=== PATIENT | male | born 1970 | race Hispanic/Latino ===

== ENCOUNTER 2018-10-25 13:23 | Emergency (ER) | payer BC, MEDICAID ==
[2018-10-25 13:32] VITALS: RESP 18
[2018-10-25] MEDS ORDERED: Sodium Chloride 0.9% 1,000 ML IV STA (14:01)
--- NOTE | 2018-10-25 14:28 | ED PDOC ---
HPI: Abdomen Time Seen by Provider: 10/25/18 13:45 Chief Complaint (Nursing): Abdominal Pain Chief Complaint (Provider): Abdominal Pain History Per: Patient History/Exam Limitations: no limitations Onset/Duration Of Symptoms: Days (past week) Associated Symptoms: Nausea, Diarrhea, Constipation. denies: Vomiting, Loss Of Appetite Additional Complaint(s): Sid Lundberg is a 48 year old male with a past medical history of IBS, ADD, and anxiety, who presents to the emergency department complaining of bloating, nausea, intermittent episodes of constipation and diarrhea, associated with dizziness and bilateral blurry vision, onset past week. He reports that he gets these symptoms once every month and attributes them to his IBS, for which he takes Linzess and states he feels better after taking it. Patient further states that when he was at the pharmacy today, he took a Linzess and while already feeling weakness, it started to get worse and he felt as if he was going to pass out. He states he has never had these symptoms before. Patient further reports that for the past several months now, he has had a strong sense of smell. His psychiatrist told him it could be due to his Adderall and Wellbutrin, which he takes for ADD and anxiety respectively. Patient states today he has had x3 episodes of non-bloody watery diarrhea with good appetite but has not been drinking fluids. He denies vomiting, rectal bleeding, headache, melena, hematochezia, chest pain, shortness of breath, fever, chills, or head injury. PMD: Breonna Lal Past Medical History Reviewed: Historical Data, Nursing Documentation, Vital Signs Vital Signs: Last Vital Signs Temp 98.2 F 10/25/18 13:29 Pulse 64 10/25/18 13:29 Resp 18 10/25/18 13:29 BP 108/69 10/25/18 13:29 Pulse Ox 100 10/25/18 13:29 - Medical History PMH: Anxiety, Depression Other PMH: ADD - Surgical History Surgical History: No Surg Hx - Family History Family History: States: Unknown Family Hx - Home Medications Home Medications: Ambulatory Orders Medication Instructions Recorded Ondansetron ODT [Zofran ODT] 4 mg PO TID #10 odt 10/25/18 - Allergies Allergies/Adverse Reactions: Allergies Allergy/AdvReac Type Severity Reaction Status Date / Time No Known Allergies Allergy Unverified 10/25/18 13:29 Review of Systems ROS Statement: Except As Marked, All Systems Reviewed And Found Negative Constitutional: Negative for: Fever, Chills Eyes: Positive for: Vision Change (bilateral blurry vision) Cardiovascular: Negative for: Chest Pain Respiratory: Negative for: Shortness of Breath Gastrointestinal: Positive for: Nausea, Diarrhea, Constipation. Negative for: Vomiting, Melena, Hematochezia, Rectal Pain (rectal bleeding) Neurological: Positive for: Weakness, Dizziness. Negative for: Headache Physical Exam - Reviewed Nursing Documentation Reviewed: Yes Vital Signs Reviewed: Yes - Physical Exam Appears: Positive for: Non-toxic, No Acute Distress Head Exam: Positive for: ATRAUMATIC, NORMOCEPHALIC Skin: Positive for: Normal Color, Warm, Dry Eye Exam: Positive for: Normal appearance, EOMI, PERRL. Negative for: Nystagmus ENT: Positive for: TM Is/Are (non-erythematous, non-bulging b/l). Negative for: Sinus Pain/Drainage, Pharyngeal Erythema, Tonsillar Exudate, Tonsillar Swelling Neck: Positive for: Normal, Painless ROM, Supple Cardiovascular/Chest: Positive for: Regular Rate, Rhythm. Negative for: Murmur Respiratory: Positive for: Normal Breath Sounds. Negative for: Respiratory Distress Gastrointestinal/Abdominal: Positive for: Normal Exam, Soft. Negative for: Tenderness (no tenderness on deep palpation), Distended Back: Positive for: Normal Inspection. Negative for: L CVA Tenderness, R CVA Tenderness, Vertebral Tenderness Extremity: Positive for: Normal ROM. Negative for: Pedal Edema, Deformity Neurologic/Psych: Positive for: Alert, Oriented, Mood/Affect (cooperative and friendly), Gait (steady and unassisted). Negative for: Motor/Sensory Deficits - Laboratory Results Result Diagrams: 10/25/18 14:48 10/25/18 14:48 - ECG ECG: Positive for: Interpreted By Me ECG Rhythm: Positive for: Sinus Rhythm. Negative for: ST/T Changes Rate: 68 O2 Sat by Pulse Oximetry: 100 (RA) Pulse Ox Interpretation: Normal - Progress Re-evaluation Time: 15:42 (AOx3. Reports feeling much better. All symptoms re solved. Repeat neuro exam is non-focal. Abd soft and non-tender. Advised to f/u with PMD for further evaluation but is to return to ED immediately if symptoms worsen. ) Condition: Re-examined, Improved Medical Decision Making Medical Decision Making: Time: 1401 Impression: IBS, dizziness, dehydration Plan: --CT head without contrast --EKG --CMP --Lipase --Troponin I --CBC with differential --Urinalysis --Bentyl 20 mg PO --Pepcid 20 mg IVP --Sodium chloride 1,000 ml --Zofran inj 4 mg IVP --Saline lock Time: 1506 CT FINDINGS: HEMORRHAGE: No intracranial hemorrhage. BRAIN: No mass effect or edema. The robb-white matter differentiation appears intact. Please note that MRI with diffusion imaging is more sensitive in the detection of acute ischemic event. VENTRICLES: No hydrocephalus. CALVARIUM: Unremarkable. PARANASAL SINUSES: Unremarkable as visualized. No significant inflammatory changes. MASTOID AIR CELLS: Unremarkable as visualized. No inflammatory changes. OTHER FINDINGS: None. IMPRESSION: No acute intracranial pathology identified. Scribe Attestation: Documented by Eren Cochran, acting as a scribe for Elpidio Cary Provider Scribe Attestation: All medical record entries made by the Scribe were at my direction and personally dictated by me. I have reviewed the chart and agree that the record accurately reflects my personal performance of the history, physical exam, medical decision making, and the department course for this patient. I have also personally directed, reviewed, and agree with the discharge instructions and disposition. Disposition - Clinical Impression Clinical Impression: Pre-syncope, IBS (irritable bowel syndrome) - Patient ED Disposition Is Patient to be Admitted: No - Disposition Referrals: [facility] [Outside] [facility] [Outside] Sage Gandara MD [Staff Provider] - Manuel Montes MD [Medical Doctor] - Disposition: Routine/Home Disposition Time: 15:44 Condition: IMPROVED Additional Instructions: FOLLOW UP WITH YOUR DOCTOR FOR FURTHER EVALUATION RETURN TO ED IMMEDIATELY IF SYMPTOMS WORSEN SID LUNDBERG, thank you for letting us take care of you today. Your provider was Randy Smith MD and you were treated for NAUSEA. The emergency medical care you received today was directed at your acute symptoms. If you were prescribed any medication, please fill it and take as directed. It may take several days for your symptoms to resolve. Return to the Emergency Department if your symptoms worsen, do not improve, or if you have any other problems. Please contact your doctor or call one of the physicians/clinics you have been referred to that are listed on the Patient Visit Information form that is included in your discharge packet. Bring any paperwork you were given at discharge with you along with any medications you are taking to your follow up visit. Our treatment cannot replace ongoing medical care by a primary care provider outside of the emergency department. Thank you for allowing the [facility] team to be part of your care today. If you had an X-Ray or CT scan: A Radiologist will review the ED reading if any change in treatment is needed we will contact you. If you had a blood, urine, or wound culture: It will take several days for the results, if any change in treatment is needed we will contact you. If you had an STI test: It will take 48 hours for the results. Please call after 1 week if you have not heard back. Prescriptions: Ondansetron ODT [Zofran ODT] 4 mg PO TID #10 odt Instructions: Irritable Bowel Syndrome (DC) Forms: [employer] (Danish)
--- NOTE | 2018-10-25 15:09 | CT ---
Date of service: 10/25/2018 PROCEDURE: CT HEAD WITHOUT CONTRAST. HISTORY: dizziness, weakness COMPARISON: None available. TECHNIQUE: Axial computed tomography images were obtained through the head/brain without intravenous contrast. Radiation dose: Total exam DLP = 900.57 mGy-cm. This CT exam was performed using one or more of the following dose reduction techniques: Automated exposure control, adjustment of the mA and/or kV according to patient size, and/or use of iterative reconstruction technique. FINDINGS: HEMORRHAGE: No intracranial hemorrhage. BRAIN: No mass effect or edema. The robb-white matter differentiation appears intact. Please note that MRI with diffusion imaging is more sensitive in the detection of acute ischemic event. VENTRICLES: No hydrocephalus. CALVARIUM: Unremarkable. PARANASAL SINUSES: Unremarkable as visualized. No significant inflammatory changes. MASTOID AIR CELLS: Unremarkable as visualized. No inflammatory changes. OTHER FINDINGS: None. IMPRESSION: No acute intracranial pathology identified.
[2018-10-25 15:25] LABS: ALB/GLOB RATIO 1.2 (1.0-2.1); ALBUMIN 4.6 g/dL (3.5-5.0); ALT/SGPT 91 U/L (21-72); AST/SGOT 70 U/L (17-59); BLOOD UREA NITROGEN 20 mg/dl (9-20); CALCIUM 9.5 mg/dL (8.4-10.2); GFR NON-AFRICAN AMERICAN > 60; LIPASE 729 U/L (23-300)
[2018-10-25 15:26] LABS: BASO % 0.3 % (0.0-2.0); EOS # 0.1 K/uL (0.0-0.7); EOS % 1.3 % (0.0-4.0); HEMOGLOBIN 14.9 g/dL (12.0-18.0); LYMPH # 0.6 K/uL (1.0-4.3); LYMPH % 7.3 % (20.0-40.0); MEAN CELL VOLUME 86.1 fl (80.0-94.0); MEAN CORPUSCULAR HEMOGLOBIN 29.1 pg (27.0-31.0); MEAN CORPUSCULAR HGB CONC 33.8 g/dL (33.0-37.0); MEAN PLATELET VOLUME 7.7 fl (7.2-11.7); MONO # 0.7 K/uL (0.0-0.8); MONO % 8.1 % (0.0-10.0); NRBC % 0.1 % (0.0-0.0); PLATELET COUNT 236 K/uL (130-400); RBC 5.12 Mil/uL (4.40-5.90); RED CELL DISTRIBUTION WIDTH 13.4 % (11.5-14.5); WHITE BLOOD COUNT 8.5 K/uL (4.8-10.8)
[2018-10-25 15:28] LABS: SQUAMOUS EPITHIAL < 1 /hpf (0-5); URINE BACTERIA RARE (<OCC); URINE BILIRUBIN NEGATIVE (NEGATIVE); URINE BLOOD SMALL (NEGATIVE); URINE CLARITY SLIGHTY-CLOUDY (Clear); URINE COLOR YELLOW (YELLOW); URINE GLUCOSE (UA) NEG (NEGATIVE); URINE LEUKOCYTE ESTERASE NEG Leu/uL (Negative); URINE PROTEIN NEGATIVE (NEGATIVE); URINE UROBILINOGEN 0.2-1.0 mg/dL (0.2-1.0)
[2018-10-25 15:30] LABS: URINE AMORPHOUS SEDIMENT FEW /ul (<OCC)
[2018-10-25 15:38] VITALS: PULSE 68
[2018-10-25 15:48] VITALS: BP 103/64; TEMP 98
[2018-10-25 16:02] VITALS: O2SAT 98
[2018-10-25 16:36] LABS: LYMPHOCYTE 10 % (20-50); MONOCYTE 8 % (0-10); NEUTROPHIL 82 % (42-75); PLATELET ESTIMATE NORMAL (NORMAL); TOTAL CELLS COUNTED 100
[2018-10-25 16:37] LABS: ANISOCYTOSIS SLIGHT; OVALOCYTES SLIGHT; POIKILOCYTOSIS SLIGHT; TEARDROP CELLS SLIGHT
--- NOTE | 2018-10-26 11:16 | CARD ---
APPROVED REPORT Date of service: 10/25/2018 EKG Measurement Heart [id number] <Conclusion> Normal sinus rhythm Low voltage QRS Nonspecific ST-T changes Borderline ECG
== END 2018-10-25 16:00 | disposition home or self-care (01) ==
LOC: H.ER 13:23
DX: K58.0 Irritable bowel syndrome with diarrhea (principal); R42 Dizziness and giddiness; E86.0 Dehydration; Z86.59 Personal history of other mental and behavioral disorders
CPT/HCPCS: 70450; 80053; 81003; 83690; 84484; 85025; 93005; 96361; 96374; 96375; 99283; J2405; J7030